=== PATIENT | female | born 1955 | race Caucasian/White ===

== ENCOUNTER 2016-10-01 15:20 | Emergency (ER) | payer MEDICARE ==
--- NOTE | 2016-10-01 15:47 | ERPHSYRPT ---
- History of Present Illness Time Seen by Provider: 10/01/16 15:34 Historian: patient Patient Subjective Stated Complaint: NO BM FOR FIVE DAYS Triage Nursing Assessment: HAVING LOWER ABD PAIN AFTER NOT BEING ABLE TO HAVE A BM FOR FIVE DAYS. ABD TENDER, FIRM. NORMAL BOWEL SOUNDS Physician History: CC: abd pain hX: [address] Tereza Easley. She has constipation with no BM for 5 days. Uncomfortable abdominal pain that is cramping in nature. No fever or chills. Normal urination. No N/V. She has used miralax without any relief. Feels constipation. She is diabetic. Severity of Pain-Max: moderate Severity of Pain-Current: moderate Allergies/Adverse Reactions: codeine Adverse Reaction (Mild, Verified 10/01/16 15:27) Nausea Home Medications: Aripiprazole 10 mg [Abilify 10 MG] 10 mg PO HS 03/16/13 [History] Trazodone HCl [Oleptro ER] 150 mg PO HS 03/16/13 [History] Venlafaxine HCl ER 75 mg [Effexor XR 75 MG] 150 mg PO DAILY 03/16/13 [ History] Hydrocodone Bit/Acetaminophen [Lortab 7.5-500 Tablet] 1 tab PO Q4-6HPRN PRN [History] Omeprazole 20 MG [Prilosec 20 mg] 20 mg PO BID 09/12/13 [History] Pramipexole Di-HCl [Mirapex] 0.25 mg PO DAILY 09/12/13 [History] Tiotropium [place] Inhaler [Spiriva 18 Mcg/Cap Inhaler] 1 ea IH DAILY [History] Simvastatin 40 mg [Zocor 40 mg] 40 mg PO HS 12/18/14 [History] Sitagliptin Phosphate 50 MG [Januvia 50 MG] 100 mg PO DAILY 12/18/14 [ History] Insulin NPL/Insulin Lispro [Humalog Mix 75-25 Kwikpen] 23 unit SQ BID 11/05/15 [ History] Aspirin [[place] Aspirin] 81 mg PO DAILY 10/01/16 [History] Ezetimibe 10 mg [Zetia 10 MG] 10 mg PO DAILY 10/01/16 [History] Fenofibric Acid (Choline) [Fenofibric Acid] 135 mg PO DAILY 10/01/16 [History] Furosemide 20 mg [Lasix 20 mg] 20 mg PO DAILY 10/01/16 [History] Methylphenidate HCl [Methylphenidate ER] 10 mg PO BID 10/01/16 [History] Oxybutynin Chloride [Oxybutynin Chloride ER] 15 mg PO DAILY 10/01/16 [History] Hx Tetanus, Diphtheria Vaccination/Date Given: Yes (UP TO DATE) Hx Influenza Vaccination/Date Given: Yes Hx Pneumococcal Vaccination/Date Given: Yes - Review of Systems Constitutional: Malaise, No Fever, No Chills Eyes: No Symptoms Ears, Nose, & Throat: No Symptoms Respiratory: No Cough, No Dyspnea Cardiac: No Chest Pain Abdominal/Gastrointestinal: Abdominal Pain (cramping), Constipation, No Nausea, No Vomiting, No Diarrhea Genitourinary Symptoms: No Dysuria Skin: No Rash Neurological: No Headache All Other Systems: Reviewed and Negative - Past Medical History Pertinent Past Medical History: Yes Neurological History: Paralysis ENT History: No Pertinent History Cardiac History: High Cholesterol, Hypertension Respiratory History: Asthma, Bronchitis, COPD, Pneumonia, Other Endocrine Medical History: Diabetes Type II Musculoskeletal History: Arthritis, Degenerative Disk Disease, Fibromyalgia, Osteoarthritis GI Medical History: GERD, Gallbladder Disease, Hemorrhoids, Hernia, Other History: No Pertinent History Psycho-Social History: Anxiety, Depression, Panic Disorder Female Reproductive Disorders: No Pertinent History, Abnormal Uterine Bleeding, Menstrual Problems Other Medical History: hiatal hernia, overactive bladder - Past Surgical History Past Surgical History: Yes Neuro Surgical History: No Pertinent History Cardiac: No Pertinent History Respiratory: No Pertinent History Gastrointestinal: Cholecystectomy Genitourinary: No Pertinent History Musculoskeletal: No Pertinent History Female Surgical History: Hysterectomy, Tubal Ligation Other Surgical History: PARTIAL HYSTERECTOMY - Social History Smoking Status: Former smoker How long have you smoked: 27 Exposure to second hand smoke: No Drug Use: none Patient Lives Alone: No - Female History Hx Now: No - Nursing Vital Signs Nursing Vital Signs: Initial Vital Signs Temperature 97.3 F Temperature Source Oral Pulse Rate 90 Respiratory Rate 18 Blood Pressure [Right Arm] 128/82 Pain Intensity 9 - Physical Exam General Appearance: alert Eye Exam: PERRL/EOMI Ears, Nose, Throat Exam: normal ENT inspection, moist mucous membranes Neck Exam: normal inspection, non-tender, supple Respiratory Exam: normal breath sounds, lungs clear Cardiovascular Exam: regular rate/rhythm Gastrointestinal/Abdomen Exam: soft, tenderness (diffuse discomfort, no rebound or guarding) Rectal Exam: normal rectal tone, other (large fecal impaction with firm balls of stool. MAnually dis-impacted large stool. Tolerated well.) Back Exam: normal inspection Extremity Exam: normal inspection, normal range of motion Neurologic Exam: alert, oriented x 3, cooperative, No motor deficits Skin Exam: warm, dry, No rash SpO2 Interpretation: normal SpO2: 95 - Course Nursing assessment & vital signs reviewed: Yes - Radiology Exams AAS X-ray Interpretation: Reviewed by me, Negative (constipation) Ordered Tests: Active Orders 24 hr Category Date Time Status OBSTR/ACUTE ABDOMEN SERIES Stat Exams 10/01/16 15:43 Completed CBC W DIFF Stat Lab 10/01/16 16:00 Completed CMP Stat Lab 10/01/16 16:00 Completed Manual Differential NC Stat Lab 10/01/16 16:00 Completed Lab/Rad Data: Laboratory Result Diagrams 10/01/16 16:00 10/01/16 16:00 Laboratory Results 10/01/16 10/01/16 Range/Units 16:00 16:00 WBC 11.0 H (4.0-10.5) K/mm3 RBC 4.85 (4.1-5.4) M/mm3 Hgb 14.1 (12.0-16.0) gm/dl Hct 42.4 (35-47) % MCV 87.4 (78-100) fl MCH 29.1 (26-32) pg MCHC 33.3 (32-36) g/dl RDW 14.2 H (11.5-14.0) % Plt Count 239 (150-450) K/mm3 MPV 11.2 H (6-9.5) fl Segmented Neutrophils 69 H (36.0-66.0) % Band Neutrophils 2 (0.0-2.0) % Lymphocytes (Manual) 23 L (24-44) % Monocytes (Manual) 5 (0.0-12.0) % Eosinophils (Manual) 1 (0.00-3.0) % Differential Comment ABNORMAL Platelet Estimate NORMAL (NORMAL) Anisocytosis 1+ Sodium 138 (136-145) mEq/L Potassium 3.9 (3.5-5.1) mEq/L Chloride 103 (98-107) mEq/L Carbon Dioxide 24.3 (21-32) mEq/L Anion Gap 14.7 (5-15) MEQ/L BUN 10 (9-20) mg/dL Creatinine 1.06 (0.55-1.30) mg/dl Estimated GFR 56 ML/MIN Glucose 243 H (70-110) MG/DL Calcium 9.2 (8.5-10.1) mg/dL Total Bilirubin 0.2 (0.2-1.0) mg/dL AST 26 (15-37) U/L ALT 11 L (12-78) U/L Alkaline Phosphatase 87 (46-116) U/L Serum Total Protein 7.3 (6.4-8.2) gm/dL Albumin 3.7 (3.4-5.0) g/dL - Progress Progress Note: 10/01/16 16:49 Abd recheck soft and NT. She had large BM. Advised mag citrate and miralax and follow up. Instr given. Counseled pt/family regarding: lab results, diagnosis, need for follow-up, rad results - Departure Time of Disposition: 16:50 Departure Disposition: Home Clinical Impression: Fecal impaction in rectum, Constipation, Type 2 diabetes mellitus Condition: Fair Critical Care Time: No Referrals: ANA EASLEY [Primary Care Provider] - Instructions: Constipation Additional Instructions: Drink one bottle mag citrate tonite. Take one caop miralax twice a day. Follow up with Dr Easley. Watch sugar. REturn for fever, vomiting or concerns.
[2016-10-01 16:02] LABS: Mean Cell Volume 87.4 fl (78-100); Mean Corpuscular Hemoglobin 29.1 pg (26-32); Mean Platelet Volume 11.2 fl (6-9.5); Platelet Count 239 K/mm3 (150-450); Red Blood Count 4.85 M/mm3 (4.1-5.4); Red Cell Distribution Width 14.2 % (11.5-14.0)
[2016-10-01 16:22] LABS: ALBUMIN 3.7 g/dL (3.4-5.0); ANION GAP 14.7 MEQ/L (5-15); BILIRUBIN,TOTAL 0.2 mg/dL (0.2-1.0); Carbon Dioxide 24.3 mEq/L (21-32); Potassium 3.9 mEq/L (3.5-5.1); Total Protein 7.3 gm/dL (6.4-8.2)
[2016-10-01 16:30] LABS: ANISOCYTOSIS 1+; BAND 2 % (0.0-2.0); Eosinophil 1 % (0.00-3.0); Platelet Estimate NORMAL (NORMAL); Total Cells Counted 100
--- NOTE | 2016-10-01 16:47 | XRAY ---
Indication: Abdominal pain. Constipation. Comparison: KUB September 08, 2016 and chest exam April 21, 2016. 2 views of the abdomen again nonacute and nonobstructive with scattered colonic fecal debris throughout and noted previous cholecystectomy. Solid organs are unremarkable. Osseous structures intact again with multilevel spinal degenerative changes. Single PA chest again demonstrates a few calcified granulomas. Remaining heart and lungs normal. Bony thorax intact with mild degenerative changes. Impression: Again mild fecal stasis without obstruction. Stable nonacute 1 view chest with again evidence for old granulomatous disease.
[2016-10-01 16:52] VITALS: BP 122/86; PULSE 86; O2SAT 98
== END 2016-10-01 16:59 | disposition home or self-care (01) ==
LOC: ED 15:20
DX: K56.41 Fecal impaction (principal); K59.00 Constipation, unspecified; E11.9 Type 2 diabetes mellitus without complications; R10.30 Lower abdominal pain, unspecified; I10 Essential (primary) hypertension; E78.00 Pure hypercholesterolemia, unspecified; Z79.4 Long term (current) use of insulin; Z79.899 Other long term (current) drug therapy
CPT/HCPCS: 36415; 74022; 80053; 85025; 99283; 99284

== ENCOUNTER 2018-03-08 06:07 | Emergency (ER) | payer MEDICARE ==
--- NOTE | 2018-03-08 06:43 | ERPHSYRPT ---
- History of Present Illness Time Seen by Provider: 03/08/18 06:36 Source: patient Exam Limitations: no limitations Patient Subjective Stated Complaint: Has arthritis in knees and they have been hurting since Thursday with no relief Triage Nursing Assessment: Pt c/o of bilateral knee pain since Thursday, has been taking Tylenol and Ibuprofen with no relief, pulses normal, BP 168/84, hasn 't been able to sleep due to the pain, hx of arthritis in knees, appears uncomfortable Physician History: The patient is a 62-year-old female complaining of pain in both knees since Thursday. The pain has kept her awake several nights. She has been taking Tylenol and ibuprofen without relief. She has tried ice and heat without relief. She has episodes similar to this in the past but never this long. She sees a mergers and acquisitions consultant for rheumatoid arthritis that affects her knees and elbows and back. She does not take naproxen or Celebrex because it makes her stomach hurt. She uses Voltaren gel on her knees but this time the skilled nursing did not help. She denies any recent trauma. Her past medical history is significant for rheumatoid arthritis, COPD, diabetes, high cholesterol, GERD, and depression. Method of Injury: unknown Occurred: days ago (3) Quality: constant, aching Severity of Pain-Max: moderate Severity of Pain-Current: moderate Lower Extremities Pain: knee: left Modifying Factors: Improves With: nothing Associated Symptoms: none Allergies/Adverse Reactions: prednisone Allergy (Verified 03/08/18 06:21) codeine Adverse Reaction (Mild, Verified 03/08/18 06:21) Nausea Home Medications: Aripiprazole 10 mg [Abilify 10 MG] 10 mg PO HS 03/16/13 [History] Venlafaxine HCl ER 75 mg [Effexor XR 75 MG] 150 mg PO DAILY 03/16/13 [ History] Omeprazole 20 MG [Prilosec 20 mg] 20 mg PO BID 09/12/13 [History] Tiotropium [place] Inhaler [Spiriva 18 Mcg/Cap Inhaler] 1 ea IH DAILY [History] Sitagliptin Phosphate 50 MG [Januvia 50 MG] 100 mg PO DAILY 12/18/14 [ History] Insulin Lispro Protamin/Lispro [Humalog Mix 75-25 Kwikpen] 23 unit SQ BID [History] Aspirin [[place] Aspirin] 81 mg PO DAILY 10/01/16 [History] Ezetimibe 10 mg [Zetia 10 MG] 10 mg PO DAILY 10/01/16 [History] Hx Tetanus, Diphtheria Vaccination/Date Given: Yes (UP TO DATE) Hx Influenza Vaccination/Date Given: Yes Hx Pneumococcal Vaccination/Date Given: Yes - Review of Systems Constitutional: No Fever, No Chills Eyes: No Symptoms Ears, Nose, & Throat: No Symptoms Respiratory: No Cough, No Dyspnea Cardiac: No Chest Pain, No Edema, No Syncope Abdominal/Gastrointestinal: No Abdominal Pain, No Nausea, No Vomiting, No Diarrhea Genitourinary Symptoms: No Dysuria Musculoskeletal: Joint Pain Skin: No Rash Neurological: No Dizziness, No Focal Weakness, No Sensory Changes Psychological: No Symptoms Endocrine: No Symptoms Hematologic/Lymphatic: No Symptoms Immunological/Allergic: No Symptoms All Other Systems: Reviewed and Negative - Past Medical History Pertinent Past Medical History: Yes Neurological History: Paralysis ENT History: No Pertinent History Cardiac History: High Cholesterol, Hypertension Respiratory History: Asthma, Bronchitis, COPD, Pneumonia, Other Endocrine Medical History: Diabetes Type II Musculoskeletal History: Arthritis, Degenerative Disk Disease, Fibromyalgia, Osteoarthritis GI Medical History: GERD, Gallbladder Disease, Hemorrhoids, Hernia, Other History: No Pertinent History Psycho-Social History: Anxiety, Depression, Panic Disorder Female Reproductive Disorders: Abnormal Uterine Bleeding, Menstrual Problems Other Medical History: hiatal hernia, overactive bladder - Past Surgical History Past Surgical History: Yes Neuro Surgical History: No Pertinent History Cardiac: No Pertinent History Respiratory: No Pertinent History Gastrointestinal: Appendectomy, Cholecystectomy Genitourinary: No Pertinent History Musculoskeletal: No Pertinent History Female Surgical History: Hysterectomy, Tubal Ligation Other Surgical History: PARTIAL HYSTERECTOMY, back - Social History Smoking Status: Current every day smoker How long have you smoked: 27 Exposure to second hand smoke: No Drug Use: none Patient Lives Alone: No - Female History Hx Now: No - Nursing Vital Signs Nursing Vital Signs: Initial Vital Signs Temperature 97.5 F 03/08/18 06:13 Pulse Rate 87 03/08/18 06:13 Blood Pressure 168/84 03/08/18 06:13 O2 Sat by Pulse Oximetry 97 08/13/18 06:13 Pain Scale Pain Intensity [Knee] 10 Pain Intensity 10 - Physical Exam General Appearance: moderate distress Eyes, Ears, Nose, Throat Exam: moist mucous membranes Neck Exam: non-tender, supple Cardiovascular/Respiratory Exam: chest non-tender, normal breath sounds, regular rate/rhythm, no respiratory distress Gastrointestinal/Abdominal Exam: non-tender, guarding Back Exam: normal inspection, No vertebral tenderness Hips Exam: bilateral: normal inspection Legs Exam: bilateral leg: normal inspection Knees Exam: bilateral knee: normal range of motion, no evidence of injury, soft tissue tenderness Ankle Exam: bilateral ankle: normal inspection Foot Exam: bilateral foot: normal inspection Neuro/Tendon Exam: normal sensation, normal motor functions Mental Status Exam: alert, oriented x 3, cooperative Skin Exam: normal color, warm, dry SpO2 Interpretation: normal SpO2: 97 Oxygen Delivery: Room Air - Radiology Exams Left Knee X-ray Interpretation: Interpreted by me, Other (arthritis with effusion) Other X-ray Interpretation: Interpreted by me, Other (right knee arthritis with effusion.) Ordered Tests: Active Orders 24 hr Category Date Time Status KNEE (3 VIEWS) Stat Exams 03/08/18 06:44 Taken KNEE (3 VIEWS) Stat Exams 03/08/18 07:19 Taken Medication Summary Discontinued Medications Generic Name Dose Route Start Last Admin Trade Name Eulalioq PRN Reason Stop Dose Admin Ketorolac Tromethamine Confirm 03/08/18 06:44 Toradol 30 Mg Injection Administered 03/08/18 06:45 Dose 60 mg .ROUTE .STK-MED ONE Ketorolac Tromethamine 60 mg 03/08/18 06:43 03/08/18 06:48 Toradol 30 Mg Injection IM 03/08/18 06:44 60 mg STAT ONE Administration - Progress Progress: unchanged Counseled pt/family regarding: diagnosis, need for follow-up, rad results - Departure Time of Disposition: 07:45 Departure Disposition: Home Clinical Impression: Bilateral knee pain Condition: Stable Critical Care Time: No Referrals: ANA EASLEY [Primary Care Provider] - Additional Instructions: You have arthritis in both knees and this is causing your knee pain. You were given Toradol 60 mg by IM in the ER. Take tramadol 50 mg every 6 hours as needed. You may also take Tylenol and ibuprofen as needed as well. Follow-up with your primary medical doctor as needed. Prescriptions: Tramadol HCl 50 mg PO Q6H PRN PRN #12 tablet PRN Reason: Pain
[2018-03-08] MEDS ORDERED: TORAdol 30 mg Injection ONE (06:44)
[2018-03-08] MEDS: TORAdol 30 mg Injection IM ONE (06:48)
[2018-03-08 07:58] VITALS: BP 189/88; PULSE 78; O2SAT 98
--- NOTE | 2018-03-08 08:46 | XRAY ---
Indication: Knee pain 3 days. No known injury. History arthritis. Comparison: March 16, 2013. 3 views of the left knee now demonstrates minimal medial joint space narrowing/spurring and tiny tibial tuberosity spurring. No other bony, articular, or soft tissue abnormalities.
--- NOTE | 2018-03-08 08:47 | XRAY ---
Indication: Knee pain 3 days. No known injury. History arthritis. Comparison: None. 3 views of the right knee demonstrates mild tricompartmental degenerative changes, tiny tibial tuberosity spurring, and small nonspecific suprapatellar effusion. No other bony, articular, or soft tissue abnormalities.
== END 2018-03-08 07:58 | disposition home or self-care (01) ==
LOC: ED 06:07
DX: M25.562 Pain in left knee (principal); M25.561 Pain in right knee; M17.0 Bilateral primary osteoarthritis of knee; M25.461 Effusion, right knee; Z79.82 Long term (current) use of aspirin; Z79.4 Long term (current) use of insulin; Z79.899 Other long term (current) drug therapy
CPT/HCPCS: 73562; 96372; 99284; J1885

== ENCOUNTER 2018-05-01 12:52 | Emergency (ER) | payer MEDICARE ==
[2018-05-01 13:05] VITALS: BP 175/89; PULSE 90; O2SAT 98
[2018-05-01] MEDS ORDERED: TORAdol 30 mg Injection IM ONE (13:17)
--- NOTE | 2018-05-01 13:17 | ERPHSYRPT ---
- History of Present Illness Time Seen by Provider: 05/01/18 13:11 Source: patient Exam Limitations: no limitations Patient Subjective Stated Complaint: pt reports lower back and left leg pain for 2 days. pt reports her home hydrocodone is not helping her pain. pt reports she has degenerative disc disease and has been moving, lifting boxes recently. Triage Nursing Assessment: pt is aox3, pupils perrl, afebrile, resps easy and non labored, radial pulses strong and equal, no edema noted, skin is pink warm dry. pain to the lumbar region of the back that radiates to the left leg. pt sensation intact. pt ROM decreased due to pain. no obvious injured noted. Physician History: The patient is a 62-year-old female with a history of chronic back pain complains that the left side of her back is now hurting with pain going down her left buttock and leg after moving some household articles 2 days ago. She takes hydrocodone 10 mg daily without relief. She denies numbness or tingling. She denies problems with urination or defecation. Her past medical history significant for chronic back pain, COPD, GERD, diabetes, and bipolar. Timing/Duration: day(s) (2), gradual onset, worse Method of Injury: bending, lifting Quality: sharp, aching Back Pain Location: lumbar spine Back Pain Radiation: buttocks, upper legs Severity of Pain-Max: severe Severity of Pain-Current: severe Modifying Factors: Improves With: pain medication Associated Symptoms: lower back pain, No urinary incontinence, No loss of bowel control, No constipation, No problems urinating, No numbness in legs/feet Previous symptoms: same symptoms as today Allergies/Adverse Reactions: prednisone Allergy (Verified 05/01/18 13:05) codeine Adverse Reaction (Mild, Verified 05/01/18 13:05) Nausea Home Medications: Aripiprazole 10 mg [Abilify 10 MG] 10 mg PO HS 03/16/13 [History] Venlafaxine HCl ER 75 mg [Effexor XR 75 MG] 150 mg PO DAILY 03/16/13 [ History] Omeprazole 20 MG [Prilosec 20 mg] 20 mg PO BID 09/12/13 [History] Tiotropium [place] Inhaler [Spiriva 18 Mcg/Cap Inhaler] 1 ea IH DAILY [History] Sitagliptin Phosphate 50 MG [Januvia 50 MG] 100 mg PO DAILY 12/18/14 [ History] Insulin Lispro Protamin/Lispro [Humalog Mix 75-25 Kwikpen] 23 unit SQ BID [History] Aspirin [[place] Aspirin] 81 mg PO DAILY 10/01/16 [History] Ezetimibe 10 mg [Zetia 10 MG] 10 mg PO DAILY 10/01/16 [History] Hydrocodone/Acetaminophen [Hydrocodone-Acetamin 10-325 mg] 10 mg PO DAILY [History] Hx Tetanus, Diphtheria Vaccination/Date Given: Yes Hx Influenza Vaccination/Date Given: No Hx Pneumococcal Vaccination/Date Given: No Immunizations Up to Date: Yes - Review of Systems Constitutional: No Fever, No Chills Eyes: No Symptoms Ears, Nose, & Throat: No Symptoms Respiratory: No Cough, No Dyspnea Cardiac: No Chest Pain, No Edema, No Syncope Abdominal/Gastrointestinal: No Abdominal Pain, No Nausea, No Vomiting, No Diarrhea Genitourinary Symptoms: No Dysuria Musculoskeletal: Back Pain Skin: No Rash Neurological: No Dizziness, No Focal Weakness, No Sensory Changes Psychological: No Symptoms Endocrine: No Symptoms Hematologic/Lymphatic: No Symptoms Immunological/Allergic: No Symptoms All Other Systems: Reviewed and Negative - Past Medical History Pertinent Past Medical History: Yes Neurological History: Paralysis ENT History: No Pertinent History Cardiac History: High Cholesterol, Hypertension Respiratory History: Asthma, Bronchitis, COPD, Pneumonia, Other Endocrine Medical History: Diabetes Type II Musculoskeletal History: Arthritis, Degenerative Disk Disease, Fibromyalgia, Osteoarthritis GI Medical History: GERD, Gallbladder Disease, Hemorrhoids, Hernia, Other History: No Pertinent History Psycho-Social History: Anxiety, Depression, Panic Disorder Female Reproductive Disorders: Abnormal Uterine Bleeding, Menstrual Problems Other Medical History: hiatal hernia, overactive bladder - Past Surgical History Past Surgical History: Yes Neuro Surgical History: No Pertinent History Cardiac: No Pertinent History Respiratory: No Pertinent History Gastrointestinal: Appendectomy, Cholecystectomy Genitourinary: No Pertinent History Musculoskeletal: No Pertinent History Female Surgical History: Hysterectomy, Tubal Ligation Other Surgical History: PARTIAL HYSTERECTOMY, back - Social History Smoking Status: Current every day smoker How long have you smoked: 27 Exposure to second hand smoke: No Drug Use: none Patient Lives Alone: No - Female History Hx Now: No - Nursing Vital Signs Nursing Vital Signs: Initial Vital Signs Temperature 98 F 05/01/18 12:56 Pulse Rate 90 05/01/18 12:56 Respiratory Rate 20 05/01/18 12:56 Blood Pressure 175/89 05/01/18 12:56 O2 Sat by Pulse Oximetry 98 05/01/18 12:56 Pain Scale Pain Intensity 10 - Physical Exam General Appearance: moderate distress, obese Eye Exam: PERRL/EOMI, eyes nml inspection Ears, Nose, Throat Exam: normal ENT inspection Neck Exam: normal inspection, non-tender, supple, full range of motion, No meningismus, No midline tenderness Respiratory Exam: normal breath sounds, lungs clear, No respiratory distress Cardiovascular Exam: regular rate/rhythm, normal heart sounds Gastrointestinal Exam: soft, No tenderness, No mass Pelvic Exam: not done Rectal Exam: not done Back Exam: decreased range of motion, muscle spasm (left lumbar paraspinous ) Extremity Exam: normal inspection, normal range of motion, No calf tenderness, No pedal edema Neurologic Exam: alert, oriented x 3, cooperative, horticultural agent II-XII nml as tested, normal mood/affect, nml station & gait, sensation nml, No motor deficits Skin Exam: normal color, warm, dry, No rash SpO2 Interpretation: normal SpO2: 98 Oxygen Delivery: Room Air - Progress Progress: improved Counseled pt/family regarding: diagnosis, need for follow-up - Departure Time of Disposition: 13:24 Departure Disposition: Home Clinical Impression: Back spasm Condition: Stable Critical Care Time: No Referrals: ANA EASLEY [Primary Care Provider] - Additional Instructions: You have low back pain due to muscle spasms. You were given Toradol 60 mg and Decadron 10 mg by IM in the ER. Take Flexeril 5 mg every 8 hours as needed. You may also take Tylenol as needed. Follow-up with your primary medical doctor as needed. Prescriptions: Cyclobenzaprine HCl [Flexeril] 5 mg PO Q8H PRN PRN #12 tablet PRN Reason: Moderate Pain
[2018-05-01] MEDS ORDERED: DECADRON 10MG INJ. IM ONE (13:18)
[2018-05-01] MEDS ORDERED: TORAdol 30 mg Injection ONE (13:20)
[2018-05-01] MEDS ORDERED: DECADRON 10MG INJ. ONE (13:21)
== END 2018-05-01 13:35 | disposition home or self-care (01) ==
LOC: ED 12:52
DX: M62.830 Muscle spasm of back (principal); M54.5 Low back pain; Z79.899 Other long term (current) drug therapy
CPT/HCPCS: 96372; 99283; J1100; J1885

== ENCOUNTER 2018-05-05 14:01 | Observation (INO) | payer MEDICARE ==
[2018-05-05] MEDS: DILAUDID 2 MG INJECTION IV PRN (21:00)
[2018-05-05] MEDS ORDERED: NovoLOG Insulin SQ PRN (22:00)
[2018-05-05] MEDS ORDERED: PROVENTIL COMMON CANISTER IH PRN (23:15)
[2018-05-05 23:27] LABS: Hematocrit 39.6 % (35-47); Mean Cell Volume 90.2 fl (78-100); Mean Corpuscular Hemoglobin 29.6 pg (26-32); Mean Corpuscular Hgb Concent. 32.8 g/dl (32-36); Mean Platelet Volume 11.8 fl (6-9.5); Platelet Count 262 K/mm3 (150-450); Red Blood Count 4.39 M/mm3 (4.1-5.4); Red Cell Distribution Width 16.1 % (11.5-14.0); White Blood Count 11.1 K/mm3 (4.0-10.5)
[2018-05-06 00:03] LABS: ALBUMIN 3.9 g/dL (3.5-5.0); ALKALINE PHOSPHATASE 66 U/L (38-126); ANION GAP 10.8 MEQ/L (5-15); BLOOD UREA NITROGEN 13 mg/dL (7-17); CHLORIDE 106 mmol/L (98-107); Calcium 9.6 mg/dL (8.4-10.2); Carbon Dioxide 28 mmol/L (22-30); Creatinine 1 0.87 mg/dL (0.52-1.04); Glucose 124 mg/dL (74-106); Potassium 3.5 mmol/L (3.5-5.1); SGOT/AST 40 U/L (14-36); SGPT/ALT 39 U/L (0-35); SODIUM 141 mmol/L (137-145); Total Protein 6.9 g/dL (6.3-8.2)
[2018-05-06 00:21] LABS: Eosinophil 3 % (0.00-3.0); Lymphocytes 32 % (24-44); Monocyte 6 % (0.0-12.0); Neutrophils 59 % (36.0-66.0); Platelet Estimate NORMAL (NORMAL); Total Cells Counted 100
[2018-05-06] MEDS: Coreg 6.25 MG PO SCH ×2 (00:27→09:27)
[2018-05-06] MEDS: Protonix 40MG Tablet PO SCH ×2 (00:28→09:27)
[2018-05-06] MEDS ORDERED: Abilify 10 MG PO SCH (00:30)
[2018-05-06] MEDS: DILAUDID 2 MG INJECTION IV PRN ×4 (00:49→10:35)
[2018-05-06] MEDS ORDERED: Sodium Chloride 0.9% 10 ML FLUSH Syringe IV SCH (06:00)
[2018-05-06] MEDS: PROVENTIL COMMON CANISTER IH SCH ×2 (07:57→13:30)
--- NOTE | 2018-05-06 08:57 | XRAY ---
Indication: Chronic pain. No known injury. Comparison: None 3 views of the sacrum/coccyx demonstrates lumbar degenerative spondylosis reported separately and aortic calcifications. No other bony, articular, or soft tissue abnormalities. Comment: Preliminary interpretation was made by [facility]. No discrepancy.
--- NOTE | 2018-05-06 08:57 | XRAY ---
Indication: Chronic pain. No known injury. Comparison: April 28, 2007 5 views of the lumbar spine demonstrates progressive worsening moderate/advanced multilevel degenerative spondylosis greatest last 2 levels. Elsewhere mild levoscoliosis centered L1, mild vascular calcifications, and cholecystectomy clips. No other bony, articular, or soft tissue abnormalities. Comment: Preliminary interpretation was made by [facility]. No critical discrepancy.
[2018-05-06] MEDS ORDERED: FLUZONE QUAD (36mo-64yo) 2018-2019 SYRINGE IM ONE (10:00)
[2018-05-06 10:30] LABS: Appearance SLIGHTLY CLOUDY (CLEAR); Bilirubin NEGATIVE (NEGATIVE); Blood NEGATIVE Ery/ul (0-5); Glucose NEGATIVE (NEGATIVE); Ketones NEGATIVE (NEGATIVE); Leukocyte Esterase TRACE (NEGATIVE); Nitrite NEGATIVE (NEGATIVE); Protein,Urine Dip NEGATIVE (Negative); Specific Gravity 1.014 (1.005-1.025); Urobilinogen 2 mg/dL (0-1)
[2018-05-06 11:48] VITALS: BP 160/74; PULSE 84; O2SAT 91
[2018-05-06] MEDS ORDERED: [UNRECOGNIZED DRUG - OTHER] NEB PRN (12:07)
[2018-05-06] MEDS ORDERED: IPRATROPIUM NEB PRN (12:07)
[2018-05-06] MEDS ORDERED: ALBUTEROL SULFATE NEB PRN (12:07)
[2018-05-06] MEDS ORDERED: NON-FORMULARY ITEM (Cyclobenzaprine Hcl [Flexeril] 5 MG) PO PRN (12:07)
[2018-05-06] MEDS ORDERED: Januvia 50 MG PO SCH (12:15)
[2018-05-06] MEDS ORDERED: Effexor XR 75 MG PO SCH (12:15)
[2018-05-06] MEDS ORDERED: AMARYL 4 MG PO SCH (12:15)
--- NOTE | 2018-05-06 12:21 | XRAY ---
Indication: Low back pain radiating down left leg. Sagittal and axial MRI lumbar spine performed without contrast using T1 and T2-weighted sequences. Comparison: September 06, 2014. Sagittal images demonstrate stable normal lumbar lordosis and mild levoscoliosis centered at L2. There also remains multilevel degenerative disc desiccation signal with disc space narrowing, worst and at the L1-L3 levels. Stable small multilevel thoracolumbar Schmorl nodes. No acute compression fracture, subluxation, or abnormal bone marrow signal. Conus medullaris again terminates at the L1 level. Sagittal images through the T12-L1 level again unremarkable. Axial images at the L1-L2 level again demonstrates mild annular disc bulge minimally effacing the thecal sac and producing bilateral foraminal narrowing unchanged. No disc herniation or canal stenosis. Stable mild bilateral degenerative facet arthropathy. At the L2-L3 level, there is now mild/moderate annular disc bulge effacing the thecal sac and producing bilateral foraminal narrowing. Mean AP thecal sac diameter is 6-7 mm. Mild bilateral degenerative facet and ligamentum flavum hypertrophy. At the L3-L4 level, there is again mild/moderate annular disc bulge effacing the thecal sac with mean AP thecal sac diameter 5-6 mm. New left paracentral subligamentous disc herniation measuring at least 7 x 14 mm in greatest axial dimension with disc material extending posteriorly and inferiorly to the mid body of L4 and occupying the left epidural space with subsequent left foraminal stenosis. There remains mild bilateral degenerative facet and ligamentum flavum hypertrophy. At the L4-L5 level, there is stable mild annular disc bulge minimally effacing the thecal sac and producing bilateral foraminal stenosis. Stable left L4 nerve root impingement, moderate bilateral degenerative facet hypertrophy, and mild bilateral ligament flavum hypertrophy. At the L5-S1 level, there is stable minimal annular disc bulge producing bilateral foraminal narrowing. No disc herniation or spinal canal stenosis. Stable moderate bilateral degenerative facet hypertrophy. Impression: 1. New L3-L4 left paracentral subligamentous disc herniation with spinal canal and left foraminal stenosis as detailed. 2. Again multilevel degenerative disc disease detailed level by level with new degenerative disc bulge at L2-L3. 3. Stable multilevel Schmorl nodes and levoscoliosis.
[2018-05-06] MEDS ORDERED: ECOTRIN 81 MG PO SCH (12:30)
[2018-05-06] MEDS ORDERED: Cyclobenzaprine 10 MG PO PRN (12:36)
--- NOTE | 2018-05-06 12:42 | PCM.SSS ---
History of Present Illness - Chief Complaint Chief Complaint: Intractable back pain for 2-3 weeks History of Present Illness: is a 62 year old female.admitted from office with intractable back pain for 2-3 weeks duration - Review of Systems Constitutional: No Fever, No Chills Eyes: No Symptoms Ears, Nose, & Throat: No Symptoms Respiratory: No Cough, No Short Of Breath Cardiac: No Chest Pain, No Edema, No Syncope Abdominal/Gastrointestinal: No Abdominal Pain, No Nausea, No Vomiting, No Diarrhea Genitourinary Symptoms: No Dysuria Musculoskeletal: Arthralgias, Back Pain, Joint Pain, No Neck Pain Skin: No Rash Neurological: No Dizziness, No Focal Weakness, No Sensory Changes Psychological: No Symptoms Endocrine: No Symptoms Hematologic/Lymphatic: No Symptoms Immunological/Allergic: No Symptoms Medications & Allergies Home Medications: Home Medication List Aripiprazole 10 mg [Abilify 10 MG] 10 mg PO HS 03/16/13 [History Confirmed 05/05/18] Venlafaxine HCl ER 75 mg [Effexor XR 75 MG] 150 mg PO DAILY 03/16/13 [ History Confirmed 05/05/18] Omeprazole 20 MG [Prilosec 20 mg] 20 mg PO BID 09/12/13 [History Confirmed 05/05] Tiotropium [place] Inhaler [Spiriva 18 Mcg/Cap Inhaler] 1 ea IH DAILY [History Confirmed 05/05/18] Sitagliptin Phosphate 50 MG [Januvia 50 MG] 100 mg PO DAILY 12/18/14 [ History Confirmed 05/05/18] Insulin Lispro Protamin/Lispro [Humalog Mix 75-25 Kwikpen] 23 unit SQ BID [History Confirmed 05/05/18] Aspirin [[place] Aspirin] 81 mg PO DAILY 10/01/16 [History Confirmed 05/05/18 ] Ezetimibe 10 mg [Zetia 10 MG] 10 mg PO DAILY 10/01/16 [History Confirmed 05/13] Cyclobenzaprine HCl [Flexeril] 5 mg PO Q8H PRN PRN #12 tablet 05/01/18 [Rx Confirmed 05/05/18] Hydrocodone/Acetaminophen [Hydrocodone-Acetamin 10-325 mg] 10 - 325 mg PO DAILY 05/01/18 [History Confirmed 05/05/18] Albuterol Sulfate [Proair Hfa] 90 mcg NEB QID PRN 05/05/18 [History Confirmed ] Carvedilol 6.25 mg [Coreg 6.25 MG] 6.25 mg PO BID 05/05/18 [History Confirmed 05/05/18] Fenofibric Acid (Choline) [Fenofibric Acid] 135 mg PO DAILY 05/05/18 [History Confirmed 05/05/18] Fesoterodine Fumarate [Toviaz] 4 mg PO DAILY 05/05/18 [History Confirmed ] Gabapentin 300 mg PO TID 05/05/18 [History Confirmed 05/06/18] Glimepiride 4 mg [Amaryl 4 mg] 4 mg PO DAILY 05/05/18 [History Confirmed 05/05/18] Ipratropium/Albuterol Sulfate [Combivent Respimat 20-100 Mcg] 1 puff NEB QID PRN PRN 05/05/18 [History Confirmed 05/06/18] Leflunomide 20 mg PO DAILY 05/05/18 [History Confirmed 05/05/18] Linaclotide [Linzess] 145 mcg PO DAILY 05/05/18 [History Confirmed 05/06/18] Lisinopril 5 mg [Zestril 5 MG] 2.5 mg PO DAILY 05/05/18 [History Confirmed 05/05/18] Methylphenidate 5 mg [Ritalin 5 MG] 10 mg PO BID 05/05/18 [History Confirmed 05/06/18] Trazodone HCl [Desyrel] 150 mg PO BID 05/05/18 [History Confirmed 05/05/18] Naproxen 500 mg [Naprosyn 500 MG] 500 mg PO TID #30 tablet 05/06/18 [Rx] Allergies/Adverse Reactions: Allergies Allergy/AdvReac Type Severity Reaction Status Date / Time prednisone Allergy Verified 05/01/18 13:05 codeine AdvReac Mild Nausea Verified 05/01/18 13:05 - Past Medical History Past Medical History: Yes Neurological History: No Pertinent History ENT History: No Pertinent History Cardiac History: High Cholesterol Respiratory History: COPD Endocrine Medical History: Diabetes Type II Musculoskelatal History: Arthritis GI Medical History: GERD History: No Pertinent History Pyscho-Social History: Anxiety, Depression Reproductive Disorders: No Pertinent History Comment: hiatal hernia, overactive bladder - Female History Are you now?: No - Past Surgical History Past Surgical History: Yes Neuro Surgical History: No Pertinent History Cardiac History: Angioplasty Respiratory Surgery: No Pertinent History GI Surgical History: Appendectomy, Cholecystectomy Genitourinary Surgical Hx: No Pertinent History Musculskeletal Surgical Hx: No Pertinent History Female Surgical History: Hysterectomy, Dilation & Curettage Other Surgical History: PARTIAL HYSTERECTOMY, back - Social History Smoking Status: Current some day smoker How long have you smoked: 28 years Exposure to second hand smoke: Yes Alcohol: None Drug Use: none - Physical Exam Vital Signs: Vital Signs - 24 hr Temp Pulse Resp BP Pulse Ox 05/06/18 11:47 97.6 F 84 22 160/74 91 L 05/06/18 07:49 97.5 F 71 22 147/65 93 L 05/06/18 04:00 97.9 F 80 19 142/64 94 L 05/05/18 23:22 72 13 94 L 05/05/18 21:22 97.9 F 86 19 155/72 94 L General Appearance: no apparent distress, alert Neurologic Exam: alert, oriented x 3, cooperative, normal mood/affect, nml cerebellar function, nml station & gait, sensation nml, No motor deficits Eye Exam: PERRL/EOMI, eyes nml inspection Ears, Nose, Throat Exam: normal ENT inspection, TMs normal, pharynx normal, moist mucous membranes Neck Exam: normal inspection, non-tender, supple, full range of motion Respiratory Exam: normal breath sounds, lungs clear, No respiratory distress Cardiovascular Exam: regular rate/rhythm, normal heart sounds, normal peripheral pulses Gastrointestinal/Abdomen Exam: soft, normal bowel sounds, No tenderness, No mass Back Exam: decreased range of motion, muscle spasm, No CVA tenderness, No vertebral tenderness Extremity Exam: normal inspection, normal range of motion, pelvis stable Skin Exam: normal color, warm, dry, No rash Lymphatic Exam: No adenopathy Results - Labs Lab/Micro Results: Accuchecks Date 05/06/18 Date 05/05/18 Time 07:30 Time 22:00 Accucheck Value: 86 Accucheck Value: 171 Lab Results-Last 24 Hours 05/05/18 05/05/18 05/06/18 Range/Units 23:15 23:15 11:27 WBC 11.1 H (4.0-10.5) K/mm3 RBC 4.39 (4.1-5.4) M/mm3 Hgb 13.0 (12.0-16.0) gm/dl Hct 39.6 (35-47) % MCV 90.2 (78-100) fl MCH 29.6 (26-32) pg MCHC 32.8 (32-36) g/dl RDW 16.1 H (11.5-14.0) % Plt Count 262 (150-450) K/mm3 MPV 11.8 H (6-9.5) fl Absolute Granulocytes 6.60 (1.4-6.9) Segmented Neutrophils 59 (36.0-66.0) % Lymphocytes (Manual) 32 (24-44) % Monocytes (Manual) 6 (0.0-12.0) % Eosinophils (Manual) 3 (0.00-3.0) % Platelet Estimate NORMAL (NORMAL) RBC Morphology NORMAL Sodium 141 (137-145) mmol/L Potassium 3.5 (3.5-5.1) mmol/L Chloride 106 (98-107) mmol/L Carbon Dioxide 28 (22-30) mmol/L Anion Gap 10.8 (5-15) MEQ/L BUN 13 (7-17) mg/dL Creatinine 0.87 (0.52-1.04) mg/dL Estimated GFR > 60.0 ML/MIN Glucose 124 H (74-106) mg/dL Hemoglobin A1c 5.82 (4.5-6.0) % Calcium 9.6 (8.4-10.2) mg/dL Total Bilirubin 0.40 (0.2-1.3) mg/dL AST 40 H (14-36) U/L ALT 39 H (0-35) U/L Alkaline Phosphatase 66 (38-126) U/L Serum Total Protein 6.9 (6.3-8.2) g/dL Albumin 3.9 (3.5-5.0) g/dL Accuchecks Date 05/06/18 Date 05/05/18 Time 07:30 Time 22:00 Accucheck Value: 86 Accucheck Value: 171 - Radiology Impressions Radiology Exams & Impressions: Radiology Procedures Category Date Time Status LUMBAR COMPLETE (MIN 4 VIEWS) Urgent Exams 05/05/18 23:21 Completed MRI L-SPINE WITHOUT CONTRAST [MRI] Routine Exams 05/06/18 08:00 Completed SACRUM AND COCCYX Urgent Exams 05/05/18 23:21 Completed - Other Procedures and Tests Respiratory Therapy 05/05/18 23:16 Peak Expiratory Flow Rate ONCE Respiratory Therapy Assessment DAILY Assessment/Plan (1) Intractable low back pain Current Visit: Yes Status: Acute Onset Date: ~05/05/18 Code(s): M54.5 - LOW BACK PAIN (2) Degenerative disc disease, lumbar Current Visit: Yes Status: Chronic Assessment & Plan: MRI results reviewed with patient. will refer her to Dr Frias (neurosurgery) Code(s): M51.36 - OTHER INTERVERTEBRAL DISC DEGENERATION, LUMBAR REGION Hospital Summary - Hospital Course Hospital Course: Last Vital Signs Temp 97.6 F 05/06/18 11:47 Pulse 84 05/06/18 11:47 Resp 22 05/06/18 11:47 BP 160/74 05/06/18 11:47 Pulse Ox 91 L 05/06/18 11:47 Allergies prednisone Allergy (Verified 05/01/18 13:05) codeine Adverse Reaction (Mild, Verified 05/01/18 13:05) Nausea Active Medications Hydrocodone Bitart/Acetaminophen ([place] 10/325 Mg Tablet) 1 tab PO DAILY [facility] Stop: 05/12/18 09:59 Albuterol Sulfate (Proventil Common Canister) 2 puff IH TIDRT [facility] Stop: 06/05/18 06:59 Last Admin: 05/06/18 07:57 Dose: 2 puff Albuterol Sulfate (Proventil Common Canister) 2 puff IH Q4HPRN PRN PRN Reason: SHORTNESS OF BREATH/WHEEZING Stop: 06/04/18 23:14 Last Admin: 05/05/18 23:22 Dose: 2 puff Aripiprazole (Abilify 10 Mg) 10 mg PO HS [facility] Stop: 06/05/18 00:29 Last Admin: 05/06/18 00:28 Dose: 10 mg Aspirin (Ecotrin 81 Mg) 81 mg PO DAILY NIS[facility] Stop: 06/05/18 12:29 Carvedilol (Coreg 6.25 Mg) 6.25 mg PO BID NISHA Stop: 06/05/18 00:29 Last Admin: 05/06/18 09:27 Dose: 6.25 mg Cyclobenzaprine HCl (Cyclobenzaprine 10 Mg) 5 mg PO Q8H PRN PRN PRN Reason: BACK PAIN Stop: 06/05/18 12:35 Ezetimibe (Zetia 10 Mg) 10 mg PO DAILY NISHA Stop: 06/06/18 09:59 Gabapentin (Neurontin 300 Mg) 300 mg PO TID NISHA Stop: 06/05/18 14:59 Glimepiride (Amaryl 4 Mg) 4 mg PO DAILY NIS[facility] Stop: 06/05/18 12:14 Hydromorphone HCl (Dilaudid 2 Mg Injection) 1 mg IV Q3H PRN PRN PRN Reason: PAIN Stop: 05/10/18 20:34 Last Admin: 05/06/18 10:35 Dose: 1 mg Insulin Aspart (Novolog Insulin) 0 unit SQ UD PRN PRN Reason: DM Stop: 06/04/18 21:59 Lisinopril (Zestril 5 Mg) 2.5 mg PO DAILY [facility] Stop: 06/05/18 12:44 Methylphenidate HCl (Ritalin 5 Mg) 10 mg PO 0900,1500 NIS[facility] Stop: 05/11/18 14:59 Non-Formulary Medication (Fenofibric Acid (Choline) [Fenofibric Acid]) 135 mg PO DAILY NIS[facility] Stop: 06/06/18 09:59 Non-Formulary Medication (Fesoterodine Fumarate [Toviaz]) 4 mg PO DAILY N[facility] Stop: 06/06/18 09:59 Non-Formulary Medication (Insulin Lispro Protamin/Lispro [Humalog Mix 75-25 Kwikpen]) 23 unit SQ BID NISHA Stop: 06/05/18 21:59 Non-Formulary Medication (Leflunomide [Leflunomide]) 20 mg PO DAILY N[facility] Stop: 06/06/18 09:59 Non-Formulary Medication (Linaclotide [Linzess]) 145 mcg PO DAILY N[facility] Stop: 06/06/18 09:59 Non-Formulary Medication (Trazodone Hcl [Desyrel]) 150 mg PO BID N[facility] Stop: 06/05/18 21:59 Pantoprazole Sodium (Protonix 40mg Tablet) 40 mg PO BID N[facility] Stop: 06/05/18 00:29 Last Admin: 05/06/18 09:27 Dose: 40 mg Sitagliptin Phosphate (Januvia 50 Mg) 100 mg PO DAILY N[facility] Stop: 06/05/18 12:14 Sodium Chloride (Sodium Chloride 0.9% 10 Ml Flush Syringe) 10 ml IV Q8HT NIS[facility] Stop: 06/05/18 05:59 Last Admin: 05/06/18 05:42 Dose: 10 ml Tiotropium [place] (Spiriva 18 Mcg/Cap Inhaler) 1 ea IH 0700 [facility] Stop: 06/06/18 06:59 Venlafaxine HCl (Effexor Xr 75 Mg) 150 mg PO DAILY [facility] Stop: 06/05/18 12:14 Intake & Output 05/06/18 05/07/18 11:59 11:59 Intake Total 480 Output Total 700 Balance -220 Weight 91.2 kg Orders 05/06/18 09:21 PT Eval & Treat ( Order) ROUTINE Lab Tests 05/05/18 05/05/18 05/06/18 23:15 23:15 07:01 WBC 11.1 H RBC 4.39 Hgb 13.0 Hct 39.6 MCV 90.2 MCH 29.6 MCHC 32.8 RDW 16.1 H Plt Count 262 MPV 11.8 H Absolute Granulocytes 6.60 Segmented Neutrophils 59 Lymphocytes (Manual) 32 Monocytes (Manual) 6 Eosinophils (Manual) 3 Platelet Estimate NORMAL RBC Morphology NORMAL Sodium 141 Potassium 3.5 Chloride 106 Carbon Dioxide 28 Anion Gap 10.8 BUN 13 Creatinine 0.87 Estimated GFR > 60.0 Glucose 124 H Hemoglobin A1c Calcium 9.6 Total Bilirubin 0.40 AST 40 H ALT 39 H Alkaline Phosphatase 66 Serum Total Protein 6.9 Albumin 3.9 Urine Color YELLOW Urine Appearance SLIGHTLY CLOUDY Urine pH 5.0 Ur Specific [place] 1.014 Urine Protein NEGATIVE Urine Ketones NEGATIVE Urine Blood NEGATIVE Urine Nitrite NEGATIVE Urine Bilirubin NEGATIVE Urine Urobilinogen 2 Ur Leukocyte Esterase TRACE Urine WBC (Auto) 3-5 Urine RBC (Auto) 0-2 U Epithel Cells (Auto) RARE Urine Bacteria (Auto) RARE Urine Mucus (Auto) SLIGHT Urine Glucose NEGATIVE 05/06/18 11:27 WBC RBC Hgb Hct MCV MCH MCHC RDW Plt Count MPV Absolute Granulocytes Segmented Neutrophils Lymphocytes (Manual) Monocytes (Manual) Eosinophils (Manual) Platelet Estimate RBC Morphology Sodium Potassium Chloride Carbon Dioxide Anion Gap BUN Creatinine Estimated GFR Glucose Hemoglobin A1c 5.82 Calcium Total Bilirubin AST ALT Alkaline Phosphatase Serum Total Protein Albumin Urine Color Urine Appearance Urine pH Ur Specific [place] Urine Protein Urine Ketones Urine Blood Urine Nitrite Urine Bilirubin Urine Urobilinogen Ur Leukocyte Esterase Urine WBC (Auto) Urine RBC (Auto) U Epithel Cells (Auto) Urine Bacteria (Auto) Urine Mucus (Auto) Urine Glucose Chief Complaint Diagnosis Intractable back pain Allergies Allergy/AdvReac Type Severity Reaction Status Date / Time prednisone Allergy Verified 05/01/18 13:05 codeine AdvReac Mild Nausea Verified 05/01/18 13:05 Vital Signs (Last 24 hours) Temp Pulse Resp BP Pulse Ox 05/06/18 11:47 97.6 F 84 22 160/74 91 L 05/06/18 07:49 97.5 F 71 22 147/65 93 L 05/06/18 04:00 97.9 F 80 19 142/64 94 L 05/05/18 23:22 72 13 94 L 05/05/18 21:22 97.9 F 86 19 155/72 94 L Home Medications Medication Instructions Recorded Confirmed Last Taken Type Albuterol Sulfate [Proair Hfa] 90 mcg NEB QID PRN 05/05/18 05/06/18 Unknown History Carvedilol 6.25 mg [Coreg 6.25 6.25 mg PO BID 05/05/18 05/05/18 Unknown History MG] Fenofibric Acid (Choline) 135 mg PO DAILY 05/05/18 05/05/18 Unknown History [Fenofibric Acid] Fesoterodine Fumarate [Toviaz] 4 mg PO DAILY 05/05/18 05/05/18 Unknown History Gabapentin 300 mg PO TID 05/05/18 05/06/18 Unknown History Glimepiride 4 mg [Amaryl 4 4 mg PO DAILY 05/05/18 05/05/18 Unknown History mg] Ipratropium/Albuterol Sulfate 1 puff NEB QID PRN PRN 05/05/18 05/06/18 Unknown History [Combivent Respimat 20-100 Mcg] Leflunomide 20 mg PO DAILY 05/05/18 05/05/18 Unknown History Linaclotide [Linzess] 145 mcg PO DAILY 05/05/18 05/06/18 Unknown History Lisinopril 5 mg [Zestril 5 2.5 mg PO DAILY 05/05/18 05/05/18 Unknown History MG] Methylphenidate 5 mg [Ritalin 5 10 mg PO BID 05/05/18 05/06/18 Unknown History MG] Trazodone HCl [Desyrel] 150 mg PO BID 05/05/18 05/05/18 Unknown History Current Medications Generic Name Dose Route Start Last Admin Trade Name Freq PRN Reason Stop Dose Admin Hydrocodone Bitart/Acetaminophen 1 tab 05/07/18 10:00 [place] 10/325 Mg Tablet PO 05/12/18 09:59 DAILY NISHA Albuterol Sulfate 2 puff 05/06/18 07:00 05/06/18 07:57 Proventil Common Canister IH 06/05/18 06:59 2 puff TIDRT NISHA Administration Albuterol Sulfate 2 puff 05/05/18 23:15 05/05/18 23:22 Proventil Common Canister IH 06/04/18 23:14 2 puff Q4HPRN PRN Administration SHORTNESS OF BREATH/WHEEZING Aripiprazole 10 mg 05/06/18 00:30 05/06/18 00:28 Abilify 10 Mg PO 06/05/18 00:29 10 mg HS NISHA Administration Aspirin 81 mg 05/06/18 12:30 Ecotrin 81 Mg PO 06/05/18 12:29 DAILY NISHA Carvedilol 6.25 mg 05/06/18 00:30 05/06/18 09:27 Coreg 6.25 Mg PO 06/05/18 00:29 6.25 mg BID NISHA Administration Cyclobenzaprine HCl 5 mg 05/06/18 12:36 Cyclobenzaprine 10 Mg PO 06/05/18 12:35 Q8H PRN PRN BACK PAIN Ezetimibe 10 mg 05/07/18 10:00 Zetia 10 Mg PO 06/06/18 09:59 DAILY NIS[facility] Gabapentin 300 mg 05/06/18 15:00 Neurontin 300 Mg PO 06/05/18 14:59 TID NISHA Glimepiride 4 mg 05/06/18 12:15 Amaryl 4 Mg PO 06/05/18 12:14 DAILY NISHA Hydromorphone HCl 1 mg 05/05/18 20:35 05/06/18 10:35 Dilaudid 2 Mg Injection IV 05/10/18 20:34 1 mg Q3H PRN PRN Administration PAIN Insulin Aspart 0 unit 05/05/18 22:00 Novolog Insulin SQ 06/04/18 21:59 UD PRN DM Lisinopril 2.5 mg 05/06/18 12:45 Zestril 5 Mg PO 06/05/18 12:44 DAILY NISHA Methylphenidate HCl 10 mg 05/06/18 15:00 Ritalin 5 Mg PO 05/11/18 14:59 0900,1500 NISHA Non-Formulary Medication 135 mg 05/07/18 10:00 Fenofibric Acid (Choline) [Fenofibric Acid] PO 06/06/18 09:59 DAILY NISHA Non-Formulary Medication 4 mg 05/07/18 10:00 Fesoterodine Fumarate [Toviaz] PO 06/06/18 09:59 DAILY NIS[facility] Non-Formulary Medication 23 unit 05/06/18 22:00 Insulin Lispro Protamin/Lispro [Humalog Mix 75-25 Kwikpen] SQ 06/05/18 21: 59 BID NISHA Non-Formulary Medication 20 mg 05/07/18 10:00 Leflunomide [Leflunomide] PO 06/06/18 09:59 DAILY NISHA Non-Formulary Medication 145 mcg 05/07/18 10:00 Linaclotide [Linzess] PO 06/06/18 09:59 DAILY NISHA Non-Formulary Medication 150 mg 05/06/18 22:00 Trazodone Hcl [Desyrel] PO 06/05/18 21:59 BID NISHA Pantoprazole Sodium 40 mg 05/06/18 00:30 05/06/18 09:27 Protonix 40mg Tablet PO 06/05/18 00:29 40 mg BID NISHA Administration Sitagliptin Phosphate 100 mg 05/06/18 12:15 Januvia 50 Mg PO 06/05/18 12:14 DAILY NISHA Sodium Chloride 10 ml 05/06/18 06:00 05/06/18 05:42 Sodium Chloride 0.9% 10 Ml Flush Syringe IV 06/05/18 05:59 10 ml Q8HT NISHA Administration Tiotropium [place] 1 ea 05/07/18 07:00 Spiriva 18 Mcg/Cap Inhaler IH 06/06/18 06:59 0700 NIS[facility] Venlafaxine HCl 150 mg 05/06/18 12:15 Effexor Xr 75 Mg PO 06/05/18 12:14 DAILY NISHA Discontinued Medications Generic Name Dose Route Start Last Admin Trade Name Freq PRN Reason Stop Dose Admin Influenza Virus Vaccine 60 mcg 05/06/18 10:00 05/06/18 08:27 Fluzone Quad (36mo-64yo) 2558-4500 Syringe IM 05/06/18 10:01 60 mcg .ONCE ONE Administration Non-Formulary Medication 1 puff 05/06/18 12:07 Ipratropium/Albuterol Sulfate [Combivent Respimat 20-100 Mcg] NEB QID PRN PRN COPD Intake & Output (Last 24 hours) 05/04/18 05/05/18 05/06/18 05/07/18 11:59 11:59 11:59 11:59 Intake Total 480 Output Total 700 Balance -220 Weight 91.2 kg Laboratory Results (Last 24 hours) 05/06/18 05/06/18 05/05/18 11:27 07:01 23:15 WBC RBC Hgb Hct MCV MCH MCHC RDW Plt Count MPV Absolute Granulocytes Segmented Neutrophils Lymphocytes (Manual) Monocytes (Manual) Eosinophils (Manual) Platelet Estimate RBC Morphology Sodium 141 Potassium 3.5 Chloride 106 Carbon Dioxide 28 Anion Gap 10.8 BUN 13 Creatinine 0.87 Estimated GFR > 60.0 Glucose 124 H Hemoglobin A1c 5.82 Calcium 9.6 Total Bilirubin 0.40 AST 40 H ALT 39 H Alkaline Phosphatase 66 Serum Total Protein 6.9 Albumin 3.9 Urine Color YELLOW Urine Appearance SLIGHTLY CLOUDY Urine pH 5.0 Ur Specific [place] 1.014 Urine Protein NEGATIVE Urine Ketones NEGATIVE Urine Blood NEGATIVE Urine Nitrite NEGATIVE Urine Bilirubin NEGATIVE Urine Urobilinogen 2 Ur Leukocyte Esterase TRACE Urine WBC (Auto) 3-5 Urine RBC (Auto) 0-2 U Epithel Cells (Auto) RARE Urine Bacteria (Auto) RARE Urine Mucus (Auto) SLIGHT Urine Glucose NEGATIVE 05/05/18 23:15 WBC 11.1 H RBC 4.39 Hgb 13.0 Hct 39.6 MCV 90.2 MCH 29.6 MCHC 32.8 RDW 16.1 H Plt Count 262 MPV 11.8 H Absolute Granulocytes 6.60 Segmented Neutrophils 59 Lymphocytes (Manual) 32 Monocytes (Manual) 6 Eosinophils (Manual) 3 Platelet Estimate NORMAL RBC Morphology NORMAL Sodium Potassium Chloride Carbon Dioxide Anion Gap BUN Creatinine Estimated GFR Glucose Hemoglobin A1c Calcium Total Bilirubin AST ALT Alkaline Phosphatase Serum Total Protein Albumin Urine Color Urine Appearance Urine pH Ur Specific [place] Urine Protein Urine Ketones Urine Blood Urine Nitrite Urine Bilirubin Urine Urobilinogen Ur Leukocyte Esterase Urine WBC (Auto) Urine RBC (Auto) U Epithel Cells (Auto) Urine Bacteria (Auto) Urine Mucus (Auto) Urine Glucose Orders (Last 24 hours) Category Date Time Status Up [Up With Assistance] Activity 05/05/18 23:59 Active ACCUCHECK [Accucheck] ACHS Care 05/05/18 22:00 Active SCD's [Sequential Compression Device] Q6H Care 05/05/18 23:30 Active Saline Lock Care 05/05/18 22:08 Active 2000 Calorie ADA Diet 05/06/18 Breakfast Active Nutritional Admission Screen Diet 05/05/18 21:48 Active LUMBAR COMPLETE (MIN 4 VIEWS) Urgent Exams 05/05/18 23:21 Completed MRI L-SPINE WITHOUT CONTRAST [MRI] Routine Exams 05/06/18 08:00 Completed SACRUM AND COCCYX Urgent Exams 05/05/18 23:21 Completed CBC W DIFF Urgent Lab 05/05/18 23:15 Completed CMP Urgent Lab 05/05/18 23:15 Completed HEMOGLOBIN A1C Routine Lab 05/06/18 11:27 Completed Manual Differential NC Urgent Lab 05/05/18 23:15 Completed Urinalysis with Microscopy Routine Lab 05/06/18 07:01 Completed Albuterol Common Canister [Proventil Common Canister Med 05/05/18 23:15 Active ] 2 puff IH Q4HPRN PRN Albuterol Common Canister [Proventil Common Canister Med 05/06/18 07:00 Active ] 2 puff IH TIDRT Aripiprazole 10 mg [Abilify 10 MG] Med 05/06/18 00:30 Active 10 mg PO HS Aspirin EC 81 mg [Ecotrin 81 mg] Med 05/06/18 12:30 Active 81 mg PO DAILY Carvedilol 6.25 mg [Coreg 6.25 MG] Med 05/06/18 00:30 Active 6.25 mg PO BID Cyclobenzaprine HCl 10 mg [Cyclobenzaprine 10 MG] Med 05/06/18 12:36 Active 5 mg PO Q8H PRN PRN Ezetimibe 10 mg [Zetia 10 MG] Med 05/07/18 10:00 Ordered 10 mg PO DAILY Fenofibric Acid (Choline) [Fenofibric Acid] Med 05/07/18 10:00 Ordered 135 mg PO DAILY Fesoterodine Fumarate [Toviaz] Med 05/07/18 10:00 Ordered 4 mg PO DAILY Flu Vacc [id number] 36Mos Up/Pf [FLUZONE QUAD (36mo-64yo Med 05/06/18 10:00 Discontinued ) [id number] SYRINGE] 60 mcg IM .ONCE ONE Gabapentin 300 mg [Neurontin 300 mg] Med 05/06/18 15:00 Active 300 mg PO TID Glimepiride 4 mg [Amaryl 4 mg] Med 05/06/18 12:15 Active 4 mg PO DAILY Hydrocodone/APAP 10/325 mg [[place] 10/325 MG Tablet Med 05/07/18 10:00 Ordered *] DOSE tab PO DAILY Hydromorphone 2Mg Inj [Dilaudid 2 mg Injection] Med 05/05/18 20:35 Active 1 mg IV Q3H PRN PRN Insulin Aspart [NovoLOG Insulin] Med 05/05/18 22:00 Active See Dose Instructions SQ UD PRN Insulin Lispro Protamin/Lispro [Humalog Mix 75-25 Med 05/06/18 22:00 Ordered Kwikpen] 23 unit SQ BID Ipratropium/Albuterol Sulfate [Combivent Respimat 20- Med 05/06/18 12:07 Ordered 100 Mcg] 1 puff NEB QID PRN PRN Leflunomide [Leflunomide] Med 05/07/18 10:00 Ordered 20 mg PO DAILY Linaclotide [Linzess] Med 05/07/18 10:00 Ordered 145 mcg PO DAILY Lisinopril 5 mg [Zestril 5 MG] Med 05/07/18 10:00 Ordered 2.5 mg PO DAILY Methylphenidate 5 mg [Ritalin 5 MG] Med 05/06/18 22:00 Ordered 10 mg PO BID NaCl 0.9% 10 ML FLUSH [Sodium Chloride 0.9% 10 ML FLUSH Med 05/06/18 06:00 Active Syringe] 10 ml IV Q8HT PANTOPRAZOLE 40 mg Tablet [Protonix 40MG Tablet] Med 05/06/18 00:30 Active 40 mg PO BID Sitagliptin Phosphate 50 MG [Januvia 50 MG] Med 05/06/18 12:15 Active 100 mg PO DAILY Tiotropium [place] Inhaler [Spiriva 18 Mcg/Cap Med 05/07/18 10:00 Ordered Inhaler] 1 ea IH DAILY Trazodone HCl [Desyrel] Med 05/06/18 22:00 Ordered 150 mg PO BID Venlafaxine HCl ER 75 mg [Effexor XR 75 MG] Med 05/06/18 12:15 Active 150 mg PO DAILY OT Screen per Nursing Assess OT 05/05/18 21:48 Active PT Eval & Treat (MD Order) ROUTINE PT 05/06/18 09:21 Active PT Screen per Nursing Assess PT 05/05/18 21:48 Active Peak Expiratory Flow Rate ONCE RT 05/05/18 23:16 Active Pulse Oximetry .spot check RT 05/05/18 23:31 Active Respiratory Therapy Assessment DAILY RT 05/05/18 23:16 Active Smoking Cessation Education ONCE RT 05/05/18 21:48 Completed - Vitals & Intake/Output Vital Signs: Vital Signs Temperature 97.6 F 05/06/18 11:47 Pulse Rate 84 05/06/18 11:47 Respiratory Rate 22 05/06/18 11:47 Blood Pressure 160/74 05/06/18 11:47 O2 Sat by Pulse Oximetry 91 L 05/06/18 11:47 Intake & Output: Intake & Output 05/04/18 05/05/18 05/06/18 05/07/18 11:59 11:59 11:59 11:59 Intake Total 480 Output Total 700 Balance -220 Weight 91.2 kg - Lab Result Diagrams: 05/05/18 23:15 05/05/18 23:15 Lab Results-Last 24 Hrs: Accuchecks Date 05/06/18 Date 05/05/18 Time 07:30 Time 22:00 Accucheck Value: 86 Accucheck Value: 171 Lab Results-Last 24 Hours 05/05/18 05/05/18 05/06/18 Range/Units 23:15 23:15 11:27 WBC 11.1 H (4.0-10.5) K/mm3 RBC 4.39 (4.1-5.4) M/mm3 Hgb 13.0 (12.0-16.0) gm/dl Hct 39.6 (35-47) % MCV 90.2 (78-100) fl MCH 29.6 (26-32) pg MCHC 32.8 (32-36) g/dl RDW 16.1 H (11.5-14.0) % Plt Count 262 (150-450) K/mm3 MPV 11.8 H (6-9.5) fl Absolute Granulocytes 6.60 (1.4-6.9) Segmented Neutrophils 59 (36.0-66.0) % Lymphocytes (Manual) 32 (24-44) % Monocytes (Manual) 6 (0.0-12.0) % Eosinophils (Manual) 3 (0.00-3.0) % Platelet Estimate NORMAL (NORMAL) RBC Morphology NORMAL Sodium 141 (137-145) mmol/L Potassium 3.5 (3.5-5.1) mmol/L Chloride 106 (98-107) mmol/L Carbon Dioxide 28 (22-30) mmol/L Anion Gap 10.8 (5-15) MEQ/L BUN 13 (7-17) mg/dL Creatinine 0.87 (0.52-1.04) mg/dL Estimated GFR > 60.0 ML/MIN Glucose 124 H (74-106) mg/dL Hemoglobin A1c 5.82 (4.5-6.0) % Calcium 9.6 (8.4-10.2) mg/dL Total Bilirubin 0.40 (0.2-1.3) mg/dL AST 40 H (14-36) U/L ALT 39 H (0-35) U/L Alkaline Phosphatase 66 (38-126) U/L Serum Total Protein 6.9 (6.3-8.2) g/dL Albumin 3.9 (3.5-5.0) g/dL Micro Results-Entire Visit: Accuchecks Date 05/06/18 Date 05/05/18 Time 07:30 Time 22:00 Accucheck Value: 86 Accucheck Value: 171 - Radiology Exams Ordered Rad Exams-Entire Visit: Radiology Procedures Category Date Time Status LUMBAR COMPLETE (MIN 4 VIEWS) Urgent Exams 05/05/18 23:21 Completed MRI L-SPINE WITHOUT CONTRAST [MRI] Routine Exams 05/06/18 08:00 Completed SACRUM AND COCCYX Urgent Exams 05/05/18 23:21 Completed - Procedures and Test Procedures and Tests throughout Hospitalization: Therapy Orders & Screens 05/05/18 21:48 OT Screen per Nursing Assess Comment: Protocol Order Physician Instructions: Greater than 3 points order OT Admission Screening Reason For Exam: Triggered on Admission Diagnosis: Intractable back pain Open Wound/Cellutlitis/Pressure Ulcers: No Acute Fx/ORIF/Change in wt bearing status: No Severe MUSCULOSKELETAL pain: Yes ADL Dysfunction: No Acute CVA w/Hemiparesis/Hemiplegia: No Decreased Functional Mobility/Strength: Yes Sprain/Strain: No Acute Post-op Mobility Dysfunction: No Total Points: 6 PT Screen per Nursing Assess Comment: Protocol Order Physician Instructions: Greater than 3 points order PT Admission Screenin Reason For Exam: Triggered on Admission Diagnosis: Intractable back pain Open Wound/Cellutlitis/Pressure Ulcers: No Acute Fx/ORIF/Change in wt bearing status: No Severe MUSCULOSKELETAL pain: Yes ADL Dysfunction: No Acute CVA w/Hemiparesis/Hemiplegia: No Decreased Functional Mobility/Strength: Yes Sprain/Strain: No Acute Post-op Mobility Dysfunction: No Total Points: 6 Smoking Cessation Education ONCE Comment: Diagnosis: Intractable back pain Smoking Status: Current some day smoker How long have you smoked: 28 years Have you smoked in the past 12 months: Yes Approximately how many cigarettes per day: pack daily Do you dip or chew tobacco: No If,Former Smoker,when did you quit: 201605/05/18 23:16 Peak Expiratory Flow Rate ONCE Comment: Reason For Exam: Diagnosis: Intractable back pain Respiratory Therapy Assessment DAILY Comment: Diagnosis: Intractable back pain 05/06/18 09:21 PT Eval & Treat (MD Order) ROUTINE Reason for Eval:: BACK PAIN Diagnosis: Intractable back pain - Discharge Disposition: Home, Self-Care Condition: Stable Prescriptions: New Naproxen 500 mg [Naprosyn 500 MG] 500 mg PO TID #30 tablet Continue Aripiprazole 10 mg [Abilify 10 MG] 10 mg PO HS Venlafaxine HCl ER 75 mg [Effexor XR 75 MG] 150 mg PO DAILY Tiotropium [place] Inhaler [Spiriva 18 Mcg/Cap Inhaler] 1 ea IH DAILY Omeprazole 20 MG [Prilosec 20 mg] 20 mg PO BID Sitagliptin Phosphate 50 MG [Januvia 50 MG] 100 mg PO DAILY Insulin Lispro Protamin/Lispro [Humalog Mix 75-25 Kwikpen] 23 unit SQ BID Ezetimibe 10 mg [Zetia 10 MG] 10 mg PO DAILY Aspirin [[place] Aspirin] 81 mg PO DAILY Hydrocodone/Acetaminophen [Hydrocodone-Acetamin 10-325 mg] 10 - 325 mg PO DAILY Cyclobenzaprine HCl [Flexeril] 5 mg PO Q8H PRN PRN #12 tablet PRN Reason: Moderate Pain Leflunomide 20 mg PO DAILY Linaclotide [Linzess] 145 mcg PO DAILY Glimepiride 4 mg [Amaryl 4 mg] 4 mg PO DAILY Carvedilol 6.25 mg [Coreg 6.25 MG] 6.25 mg PO BID Lisinopril 5 mg [Zestril 5 MG] 2.5 mg PO DAILY Fenofibric Acid (Choline) [Fenofibric Acid] 135 mg PO DAILY Ipratropium/Albuterol Sulfate [Combivent Respimat 20-100 Mcg] 1 puff NEB QID PRN PRN PRN Reason: COPD Albuterol Sulfate [Proair Hfa] 90 mcg NEB QID PRN Trazodone HCl [Desyrel] 150 mg PO BID Gabapentin 300 mg PO TID Fesoterodine Fumarate [Toviaz] 4 mg PO DAILY Methylphenidate 5 mg [Ritalin 5 MG] 10 mg PO BID Follow up with: PAOLA ARGUELLES MD [CONSULTING PHYSICIAN] - 1 Week ANA EASLEY [Primary Care Provider] - 1 Week
[2018-05-06] MEDS ORDERED: Tricor 145 MG PO SCH (12:45)
[2018-05-06] MEDS ORDERED: Zestril 5 MG PO SCH (12:45)
[2018-05-06] MEDS ORDERED: Zetia 10 MG PO SCH (13:00)
[2018-05-06] MEDS ORDERED: MEDICATION INTERVENTION MC SCH ×2 (13:00)
[2018-05-06] MEDS: Norco 10/325 MG Tablet PO SCH ×2 (13:35→14:14)
[2018-05-06] MEDS ORDERED: Neurontin 100 MG PO SCH (15:00)
[2018-05-06] MEDS ORDERED: Ritalin 5 MG PO SCH (15:00)
[2018-05-06] MEDS ORDERED: NEURONTIN 300 MG PO SCH (15:00)
[2018-05-06] MEDS ORDERED: HUMALOG MIX 75-25 VIAL SQ SCH (16:30)
[2018-05-06] MEDS ORDERED: Ditropan 5 MG PO SCH (22:00)
[2018-05-06] MEDS ORDERED: Desyrel 150 MG PO SCH (22:00)
[2018-05-06] MEDS ORDERED: INSULIN LISPRO PROTAMINE SQ SCH (22:00)
[2018-05-06] MEDS ORDERED: INSULIN LISPRO SQ SCH (22:00)
[2018-05-07] MEDS ORDERED: Spiriva 18 Mcg/Cap Inhaler IH SCH (07:00)
[2018-05-07] MEDS ORDERED: FESOTERODINE FUMARATE 4 MG PO SCH (10:00)
[2018-05-07] MEDS ORDERED: LEFLUNOMIDE 20 MG PO SCH (10:00)
[2018-05-07] MEDS ORDERED: NON-FORMULARY ITEM (Linaclotide [Linzess] 145 MCG) PO SCH (10:00)
== END 2018-05-06 14:08 | disposition home or self-care (01) ==
LOC: MED SURG 20:17
PROVIDERS: ADMIT General Practice; ATTEND General Practice
DX: M54.5 Low back pain (principal); M51.36 Other intervertebral disc degeneration, lumbar region; E11.9 Type 2 diabetes mellitus without complications; Z79.4 Long term (current) use of insulin; K21.9 Gastro-esophageal reflux disease without esophagitis; K44.9 Diaphragmatic hernia without obstruction or gangrene; F41.9 Anxiety disorder, unspecified; F32.9 Major depressive disorder, single episode, unspecified; N32.81 Overactive bladder; Z23 Encounter for immunization; Z79.899 Other long term (current) drug therapy; Z72.0 Tobacco use
CPT/HCPCS: 36415; 72110; 72148; 72220; 80053; 81001; 82962; 83036; 85025; 94150; 94640; 94760; 97161; G0378; 90686; G0008; J1170; A9270-GY

== ENCOUNTER 2018-08-28 19:35 | Emergency (ER) | payer MEDICARE ==
[2018-08-28 19:58] VITALS: BP 143/75; PULSE 83; O2SAT 99
--- NOTE | 2018-08-28 21:15 | ERPHSYRPT ---
- History of Present Illness Historian: patient Exam Limitations: no limitations Patient Subjective Stated Complaint: pt reports no BM since 08/21/18, states she is sick to her stomach and is not able to keep food down. reports having back surgery 08/24/17. reports taking hydrocodone daily prior to surgery. Triage Nursing Assessment: pt is aox3, pupils perrl, afebrile, resps easy and non labored, radial pulses strong and equal, abd is slightly distended, soft, tender with palpation to the lower quadrants, bowel sounds are present and normoactive x4, pt skin pink warm dry. Physician History: Pt is a 62 y/o female that presented to the ED with complains of constipation, for 6 days. Pt states, she talked to her PCP, that prescribed her Linzess, and the pt took 3 tabs for two days, but had no relief, and secondary to abdominal pain, and vomiting, she came to the ED. Pt denies F/C/S. No SOB or cough. No chest pain or palpitations. Timing/Duration: day(s) Activities at Onset: none Quality: aching, cramping Abdominal Pain Onset Location: generalized abdomen Pain Radiation: no radiation Severity of Pain-Max: mild Severity of Pain-Current: mild Modifying Factors: Improves With: nothing Associated Symptoms: nausea, vomiting Allergies/Adverse Reactions: prednisone Allergy (Verified 08/28/18 19:58) codeine Adverse Reaction (Mild, Verified 08/28/18 19:58) Nausea Home Medications: Aripiprazole 10 mg [Abilify 10 MG] 10 mg PO HS 03/16/13 [History] Venlafaxine HCl ER 75 mg [Effexor XR 75 MG] 150 mg PO DAILY 03/16/13 [ History] Omeprazole 20 MG [Prilosec 20 mg] 20 mg PO BID 09/12/13 [History] Tiotropium [place] Inhaler [Spiriva 18 Mcg/Cap Inhaler] 1 ea IH DAILY [History] Sitagliptin Phosphate 50 MG [Januvia 50 MG] 100 mg PO DAILY 12/18/14 [ History] Insulin Lispro Protamin/Lispro [Humalog Mix 75-25 Kwikpen] 23 unit SQ BID [History] Aspirin [[place] Aspirin EC] 81 mg PO DAILY 10/01/16 [History] Ezetimibe 10 mg [Zetia 10 MG] 10 mg PO DAILY 10/01/16 [History] Hydrocodone/Acetaminophen [Hydrocodone-Acetamin 10-325 mg] 10 - 325 mg PO DAILY 05/01/18 [History] Albuterol Sulfate [Proair Hfa] 90 mcg NEB QID PRN 05/05/18 [History] Carvedilol 6.25 mg [Coreg 6.25 MG] 6.25 mg PO BID 05/05/18 [History] Fenofibric Acid (Choline) [Fenofibric Acid] 135 mg PO DAILY 05/05/18 [History] Fesoterodine Fumarate [Toviaz] 4 mg PO DAILY 05/05/18 [History] Gabapentin 300 mg PO TID 05/05/18 [History] Glimepiride 4 mg [Amaryl 4 mg] 4 mg PO DAILY 05/05/18 [History] Ipratropium/Albuterol Sulfate [Combivent Respimat 20-100 Mcg] 1 puff NEB QID PRN PRN 05/05/18 [History] Leflunomide 20 mg PO DAILY 05/05/18 [History] Linaclotide [Linzess] 145 mcg PO DAILY 05/05/18 [History] Lisinopril 5 mg [Zestril 5 MG] 2.5 mg PO DAILY 05/05/18 [History] Methylphenidate 5 mg [Ritalin 5 MG] 10 mg PO BID 05/05/18 [History] Trazodone HCl [Desyrel] 150 mg PO BID 05/05/18 [History] Hx Tetanus, Diphtheria Vaccination/Date Given: No Hx Influenza Vaccination/Date Given: Yes Hx Pneumococcal Vaccination/Date Given: Yes Immunizations Up to Date: Yes - Review of Systems Constitutional: No Fever, No Chills Respiratory: No Cough, No Dyspnea Cardiac: No Chest Pain, No Edema, No Syncope Abdominal/Gastrointestinal: Abdominal Pain, Nausea, Vomiting Genitourinary Symptoms: No Dysuria Musculoskeletal: No Back Pain, No Neck Pain Neurological: No Dizziness, No Focal Weakness, No Sensory Changes - Past Medical History Pertinent Past Medical History: Yes Neurological History: No Pertinent History ENT History: No Pertinent History Cardiac History: High Cholesterol Respiratory History: COPD Endocrine Medical History: Diabetes Type II Musculoskeletal History: Arthritis GI Medical History: GERD History: No Pertinent History Psycho-Social History: Anxiety, Depression Female Reproductive Disorders: No Pertinent History Other Medical History: hiatal hernia, overactive bladder - Past Surgical History Past Surgical History: Yes Neuro Surgical History: No Pertinent History Cardiac: Angioplasty Respiratory: No Pertinent History Gastrointestinal: Appendectomy, Cholecystectomy Genitourinary: No Pertinent History Musculoskeletal: No Pertinent History Female Surgical History: Hysterectomy, Dilation & Curettage Other Surgical History: PARTIAL HYSTERECTOMY,. back surgery 08/24/17 "fusion" - Social History Smoking Status: Current every day smoker How long have you smoked: 28 years Exposure to second hand smoke: Yes Drug Use: none Patient Lives Alone: No - Female History Hx Now: No - Nursing Vital Signs Nursing Vital Signs: Initial Vital Signs Temperature 97.7 F 08/28/18 19:45 Pulse Rate 83 08/28/18 19:45 Respiratory Rate 20 08/28/18 19:45 Blood Pressure 143/75 08/28/18 19:45 O2 Sat by Pulse Oximetry 99 08/28/18 19:45 Pain Scale Pain Intensity 4 - Physical Exam General Appearance: no apparent distress, alert Eye Exam: PERRL/EOMI, eyes nml inspection Ears, Nose, Throat Exam: normal ENT inspection, pharynx normal, moist mucous membranes Respiratory Exam: normal breath sounds, lungs clear, No respiratory distress Cardiovascular Exam: regular rate/rhythm, normal heart sounds Gastrointestinal/Abdomen Exam: soft, tenderness SpO2: 99 - Course Nursing assessment & vital signs reviewed: Yes Ordered Tests: Active Orders 24 hr Category Date Time Status ACCUCHECK [Accucheck] STAT Care 08/28/18 19:50 Active Enema STAT Care 08/28/18 19:56 Active - Progress Progress: improved Progress Note: 08/28/18 21:17 Pt had a soap suds enema, and had good BM. She is feeling much better and is safe for d/c. Pt should f/u with her PCP, to start bowel protocol, per physician recommendations. Will see patient in: office - Departure Time of Disposition: 21:18 Departure Disposition: Home Clinical Impression: Constipation Condition: Stable Critical Care Time: No Referrals: ANA EASLEY [Primary Care Provider] - Additional Instructions: F/U with PCP for bowel protocol and recommendations.
== END 2018-08-28 21:30 | disposition home or self-care (01) ==
LOC: ED 19:35
DX: K59.00 Constipation, unspecified (principal); E11.9 Type 2 diabetes mellitus without complications; E78.00 Pure hypercholesterolemia, unspecified; J44.9 Chronic obstructive pulmonary disease, unspecified; M19.90 Unspecified osteoarthritis, unspecified site; K21.9 Gastro-esophageal reflux disease without esophagitis; F41.8 Other specified anxiety disorders; Z79.899 Other long term (current) drug therapy
CPT/HCPCS: 82962; 99283